=== PATIENT | male | born 1985 | race Caucasian/White ===

== ENCOUNTER → 2018-04-09 14:33 | Outpatient (CLI) | payer BC, SELFPAY | PROVIDERS: Family Provider Family Medicine; PCP Family Medicine; Visit Provider Nurse Practitioner Adult Health | DX: N20.1 Calculus of ureter (principal) | CPT/HCPCS: 74018 ==

== ENCOUNTER → 2018-04-26 10:31 | Outpatient (CLI) | payer BC, SELFPAY ==
--- NOTE | 2018-04-26 10:34 | CT_ITS ---
STUDY: CT ABDOMEN AND PELVIS WITHOUT CONTRAST REASON FOR EXAM: Male, 33 years old. Possible kidney stones. RADIATION DOSAGE (If Supplied By Facility): CTDIvol = ( 10.07 ) mGy, DLP = ( 480.51 ) mGycm TECHNIQUE: Transaxial images were obtained from the dome of the diaphragm to the symphysis pubis without oral contrast, and without intravenous contrast. Sagittal and coronal images were reconstructed. Individualized dose optimization techniques were used for this CT. COMPARISON: None. FINDINGS: The visualized lung bases are unremarkable. The visualized portions of the heart are within normal limits. Normal liver. Normal gallbladder and extrahepatic biliary system. Normal spleen. Normal pancreas. Normal bilateral adrenal glands. Normal right kidney. Normal left kidney. There is a small hiatal hernia. Normal small intestine. There are scattered colonic diverticula consistent with diverticulosis. There is a calcified appendicolith. The appendix appears unremarkable otherwise. Normal abdominal aorta. Normal inferior vena cava. There is borderline retroperitoneal lymphadenopathy with enlarged nodes no greater than 10mm in the short axis diameter. Normal urinary bladder. Normal abdominal wall. Normal osseous structures. CT/Abdomen/Pelvis without Cont IMPRESSION: Small appendicolith seen in the appendiceal lumen. Electronically Signed: Candido Mccollum MD at 11:06 EDT Tel [phone], Service support ,
== END ==
PROVIDERS: Family Provider Family Medicine; PCP Family Medicine; Visit Provider Nurse Practitioner Adult Health
DX: N20.0 Calculus of kidney (principal)
CPT/HCPCS: 74176

== ENCOUNTER 2025-03-09 18:45 | Emergency (ER) | payer OTHER, SELFPAY ==
[2025-03-09 18:47] VITALS: PULSE 88; RESP 22; TEMP 36.6; O2SAT 100; BMI 29.0
[2025-03-09 18:51] VITALS: BP 134/85
[2025-03-09] MEDS: 0.9% Normal Saline (1000mL) 1,000 ML 1000 ML IV (19:15)
[2025-03-09 19:26] LABS: Hematocrit 45.6 % (40-54); Hemoglobin 16.3 g/dL (13.0-16.5); Immature Granulocytes Count 0.040 X10^3/uL (0.0-0.0); Mean Corp Hgb Conc 35.7 g/dL (32-36); Mean Corpuscular Volume 85.1 fL (80-94); Mean Platelet Vol. 8.3 fl (6.2-12.0); NRBC Flagged by Analyzer 0 % (0-5); Platelet Count 281 K/mm3 (150-450); RBC Distribution Width CV 12.4 % (11.6-14.6); RBC Distribution Width SD 38.3 fl (35.1-43.9); Red Blood Count 5.36 M/mm3 (4.6-6.2); White Blood Count 10.4 K/mm3 (4.4-11.0)
--- NOTE | 2025-03-09 19:36 | EDS_ITS ---
HPI History of Present Illness Chief Complaint: Nausea/Vomiting Informant: patient and EMS Narrative Narrative: Brought in by EMS nausea vomiting headache started at work today. No medication for a week warm environment. States also warm at work. He states he left work early after 8 hours. Nontraumatic headache. He was sweaty. Nausea vomiting at home no hematemesis. Concern for dehydration. Denies alcohol use during vacation. Denies any recreational drug use including marijuana. No fevers. Status post Zofran by EMS started on fluids. No allergies. Prior similar symptoms: No PFSH PFSH Medical History ADHD Major depressive disorder Vision problems Kidney stones Hormone deficiency Generalized headaches Allergies Home Medications ?Medication ?Instructions ?Recorded ?Last Taken ?Type bupropion HCl 300 mg 24 hr tablet, 300 mg PO DAILY DEP RESSION 30 days 02/22/23 Unknown Rx extended release #30 tabs lisdexamfetamine 50 mg capsule 50 mg PO DAILY 02/22/23 Unknown History ([place]) citalopram 40 mg tablet 40 mg PO DAILY 03/09/25 Unkn own History levothyroxine 100 mcg tablet 100 mcg PO DAILY 03/09/25 Unknown History ondansetron 4 mg disintegrating 4 mg PO Q8H PRN PRN Na usea #10 tabs 03/09/25 Unknown Rx tablet Allergy/AdvReac Type Severity Reaction Status Date / Time No Known Allergies Allergy Verified 04/04/23 15:15 Family History Other Anxiety Depression Surgical History History of vasectomy Social History Smoking Status: Never smoker Smokeless tobacco user: chewing tobacco alcohol intake: never substance use type: does not use what type of physical activity do you participate in: none ROS ROS ED Constitutional Constitutional ED: Denies chills, fever(s) or sweats ENT ENT ED: Denies sore throat Cardiovascular Cardiovascular: Denies chest pain, leg edema, palpitations or racing heartbeat Respiratory/Chest Respiratory/Chest: Denies cough, dyspnea or dyspnea on exertion Gastrointestinal Gastrointestinal: Reports nausea and vomiting; Denies abdominal pain or diarrhea Genitourinary Genitourinary ED: Denies dysuria, hematuria or urinary frequency Musculoskeletal Musculoskeletal: Denies back pain, extremity pain or neck pain Integumentary Denies rash or wounds Neurologic Neurologic: Reports headache(s); Denies paresthesias or weakness EXAM Physical Exam Const Vital Signs: 03/09/25 18:47 03/09/25 18:51 03/09/25 20:46 Temperature 97.9 F Temperature Source Oral Pulse Rate 88 75 Respiratory Rate 22 H 15 Blood Pressure 134/85 H 127/82 H Blood Pressure Mean 101 97 Pulse Ox 100 100 Oxygen Delivery Method Room Air Room Air 03/09/25 21:35 Temperature 97.9 F Temperature Source Pulse Rate 68 Respiratory Rate 18 Blood Pressure 124/85 H Blood Pressure Mean 98 Pulse Ox 100 Oxygen Delivery Method Positive well nourished and well developed General Appearance ED: well developed and NAD HEENT Reports moist mucous membranes normocephalic and atraumatic Eyes General Eye ED: Yes normal appearance of both eyes Neck full ROM Neck Narrative: No meningismus Chest Wall Chest: Negative for tenderness Resp normal respiratory effort and normal air movement Effort and Inspection: symmetric chest movement; Negative for respiratory distress Cardio regular rate, regular rhythm and no murmurs Peripheral Pulses: pulses 2+ throughout GI normal to inspection, nondistended, normoactive bowel sounds and non-tender Palpation: Negative for guarding or rebound tenderness present Extremity normal to inspection General Extremety ED: Negative for edema or tenderness General Extremity: Negative for edema Neuro oriented x3, CN's II-XII intact bilaterally and no sensory deficits noted Sensorium / Orientation: awake and alert Skin no rashes or lesions noted and no wounds MDM MDM MDM Narrative Medical decision making narrative: Interventions / MDM: Differential diagnosis: Heat exhaustion, nausea vomiting, headache Diagnosis considered but do not suspect: No clinical meningitis My EKG interpretation: N/A Imaging independently reviewed and interpreted by myself: N/A External documents reviewed: N/A Test considered but not ordered:N/A ED course: Headache with nausea and vomiting. Concerns for heat involvement from vacation at work. No meningismus nontoxic. IV fluids continued and or dered. Toradol ordered. Will check labs. Will reevaluate. 1934 no patient request additional nausea medicines IV Zofran ordered. 2030: Headache is improving however still nauseated not as bad as earlier. His labs creatinine 1.21 with BUN of 10 there is no old for comparison. I will give additional liter of fluids will dose with IV Reglan. Will reevaluate. 2119: Clinically feeling much better tolerating p.o. fluids. Meds to bed with antiemetics. Outpatient follow-up with his doctor. All questions were answered. Re-evaluation: stable Disposition discussed with patient/family/significant other: Patient and family Case discussed with consulting clinician: N/A This note was generated with [employer] dictation software. It may contain incorrect words, spelling, and punctuation that were not noted in checking the note before signing. Lab Data Attestation: I reviewed the patient's lab results. Labs: Laboratory Results - last 24 hr 03/09/25 19:20 WBC 10.4 RBC 5.36 Hgb 16.3 Hct 45.6 MCV 85.1 MCH 30.4 MCHC 35.7 RDW Std Deviation 38.3 RDW Coeff of Jose 12.4 Plt Count 281 MPV 8.3 Immature Gran % (Auto) 0.400 Neut % (Auto) 85.3 H Lymph % (Auto) 9.3 L [place] % (Auto) 3.8 Eos % (Auto) 0.6 Baso % (Auto) 0.6 Absolute Neuts (auto) 8.9 H Absolute Lymphs (auto) 0.97 Nucleated RBC % 0 Sodium 141 Potassium 3.2 L Chloride 102 Carbon Dioxide 22.1 Anion Gap 17 H BUN 10 Creatinine 1.21 H Estim Creat Clear Calc 101.95 Est GFR (MDRD) Non-Af 78 BUN/Creatinine Ratio 8.1 L Glucose 154 H Calcium 9.6 Discharge Plan Triage Chief Complaint: Nausea/Vomiting ED Provider: Reid Garg Dx/Rx/DC Orders Clinical Impression: Nausea & vomiting, Headache, Heat exhaustion Instructions: ED Heat Exhaustion, ED Vomiting (Adult) Prescriptions: New ondansetron 4 mg tablet,disintegrating 4 mg PO Q8H PRN PRN (Reason: Nausea) Qty: 10 0RF No Action lisdexamfetamine [Vyvanse] 50 mg capsule 50 mg PO DAILY Patient Comments: take 1 capsule by mouth every morning bupropion HCl 300 mg tablet extended release 24 hr 300 mg PO DAILY 30 Days Qty: 30 2RF citalopram 40 mg tablet 40 mg PO DAILY levothyroxine 100 mcg tablet 100 mcg PO DAILY Stand Alone Forms: ED Work / School Excuse Primary Care Provider: Deni Washington Referrals: Deni Washington DO [Primary Care Provider] - 1-2 Weeks Activity Restrictions/Additional Instructions: Your labs are stable. Continue oral fluid hydration. Tylenol or Motrin as needed. Take nausea medicines as needed. Print Language: Greenlandic Disposition Disposition: Home, Self Care Discharge Date/Time: 03/09/25 21:36
[2025-03-09 19:46] LABS: Anion Gap 17 (5-15); BUN 10 mg/dL (4-19); BUN/Creat Ratio 8.1 RATIO (10-20); Calcium,Total 9.6 mg/dL (7.6-11.0); Carbon Dioxide 22.1 mmol/L (21.0-32.0); Chloride 102 mmol/L (98-108); Estimated Creatinine Clearance 101.95 ml/min (50-250); Glucose 154 mg/dL (70-99); Potassium 3.2 mmol/L (3.3-5.1)
[2025-03-09] MEDS: 0.9% Normal Saline (1000mL) 1,000 ML 999 ML IV (20:39)
[2025-03-09 20:46] VITALS: BP 127/82; PULSE 75; RESP 15; O2SAT 100
[2025-03-09 21:35] VITALS: BP 124/85; PULSE 68; RESP 18; TEMP 36.6; O2SAT 100
== END 2025-03-09 21:36 | disposition home or self-care (01) ==
PROVIDERS: Emergency Provider Emergency Medicine; PCP Family Medicine; Visit Provider Emergency Medicine
DX: R11.2 Nausea with vomiting, unspecified (principal); R51.9 Headache, unspecified; T67.5XXA Heat exhaustion, unspecified, initial encounter; F32.9 Major depressive disorder, single episode, unspecified; F90.9 Attention-deficit hyperactivity disorder, unspecified type; Z79.899 Other long term (current) drug therapy; Z98.52 Vasectomy status
CPT/HCPCS: 80048; 85025; 96361; 96374; 96375; 99285; J2405